=== PATIENT | female | born 1980 | race Caucasian/White ===

== ENCOUNTER 2019-11-05 13:58 | Outpatient (CLI) | payer OTHER, SELFPAY ==
--- NOTE | 2019-11-05 14:39 | ECG_ITS ---
Measurements Intervals [place] Rate: 71 P: 35 CA: 183 QRS: 36 QRSD: 92 T: 5 QT: 393 QTc: 430 Interpretive Statements SINUS RHYTHM DELAYED PRECORDIAL R/S TRANSITION MINIMAL Q WAVES- INFERIOR LEADS NONSPECIFIC T-WAVE ABNORMALITY- ANT/INF LEADS BORDERLINE ECG Electronically Signed On 11-05-2019 14:54:44 VITICULTURE TEACHER by Hamlet Rubi D.O.
[2019-11-05 15:32] LABS: Basophils Percent Auto 0.4 % (0.2-1.2); Eosinophils Absolute Auto 0.1 K/mm3 (0-0.3); Eosinophils Percent Auto 1.9 % (0-4.4); Hematocrit 39.8 % (37.0-47.0); Hemoglobin 12.1 g/dL (12.0-15.0); Immature Granulocyte Absolute 0.02 K/mm3 (0.00-0.031); Immature Granulocyte Percent A 0.3 % (0-0.5); Lymphocytes Absolute Auto 1.85 K/mm3 (0.9-3.2); Lymphocytes Percent Auto 27.7 % (18.3-44.2); Mean Corpuscular HGB Conc 30.4 g/dl (32-36); Mean Corpuscular Hemoglobin 24.8 pg (26-34); Mean Corpuscular Volume 81.6 fl (80-100); Mean Platelet Volume 10.4 fl (7.4-10.4); Monocytes Absolute Auto 0.5 K/mm3 (0.1-0.6); Monocytes Percent Auto 6.9 % (2.6-8.5); Neutrophils Absolute Auto 4.2 K/mm3 (1.3-6.7); Neutrophils Percent Auto 62.8 % (45.5-73.1); Platelet Count Result 339 k/mm3 (150-375); Red Blood Count 4.88 M/mm3 (4.2-5.4); Red Cell Distribution Width 13.9 % (11.5-14.5); White Blood Count 6.7 K/mm3 (4.5-10.0)
[2019-11-05 15:42] LABS: INR 0.9; Partial Thromboplastin Time 25.2 SECONDS (22.3-36.8); Prothrombin Time 12.1 Seconds (11.1-14.7)
[2019-11-05 15:45] LABS: Alanine Aminotransferase 26 U/L (4-35); Albumin Level 4.6 g/dL (3.5-5.1); Alkaline Phosphatase 78 U/L (38-126); Aspartate Amino Transferase 22 U/L (14-36); Bilirubin,Total 0.2 mg/dL (0.2-1.3); Blood Urea Nitrogen 12 mg/dL (7-17); Calcium 9.2 mg/dL (8.4-10.2); Carbon Dioxide 28 mmol/L (22-30); Chloride 98 mmol/L (98-107); Estimated Glomerular Filt Rate > 60; Glucose 148 mg/dL (65-105); Potassium 3.5 mmol/L (3.4-5.0); Sodium 139 mmol/L (137-145)
== END 2019-11-05 13:59 | disposition home or self-care (01) ==
LOC: ANHSURGERY 14:03
PROVIDERS: Visit Provider Urology
DX: Z01.818 Encounter for other preprocedural examination (principal); N39.3 Stress incontinence (female) (male); N81.4 Uterovaginal prolapse, unspecified; E11.9 Type 2 diabetes mellitus without complications; R94.31 Abnormal electrocardiogram [ECG] [EKG]
CPT/HCPCS: 36415; 80053; 85025; 85610; 85730; 86850; 86900; 86901; 87086; 93005

== ENCOUNTER 2019-11-12 00:39 | Day surgery (SDC) | payer OTHER, SELFPAY ==
[2019-11-05 14:40] VITALS: BP 148/84; PULSE 85; RESP 16; TEMP 36.6; O2SAT 100; BMI 35.2
--- NOTE | 2019-11-07 08:13 | PM.IMHP ---
H&P: HPI History of Present Illness Chief complaint: Stress Incontinence/ Uterine Prolapse Narrative: Catherine Jay is a 39 year old female who is admitted for robotic supracervical hysterectomy and bilateral salpingectomy. She has uterine prolapse has bulging discomfort. She will undergo sacral colpopexy with as well. Risks and benefits reviewed including but not exclusive of , aspiration pneumonia, bleeding, transfusion, perforation injury to bowel, bladder, ureters, or other internal organs with need for open repair risk of DVT and Fedder were also reviewed. 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 Surgical History Surgical History No history of previous surgery Social History Social History Smoking status: Never smoker Alcohol intake: never Gender identity (if verbalized by the patient): Female Meds Home Medications and Allergies Home Medications Medication Instructions Recorded Confirmed Type kc-py-SJ-vit D-gmkva-txs-coQ10 1 cap PO DAILY 07/18/19 11/05/19 History [Daily Multivitamin] omeprazole 40 mg PO DAILY 07/18/19 11/05/19 History levothyroxine 150 mcg PO DAILY 11/05/19 11/05/19 History Allergies Allergy/AdvReac Type Severity Reaction Status Date / Time Penicillins Allergy Unknown Hives Verified 11/05/19 14:38 Exam Const: General: no acute distress Eyes: General: appearance normal, both eyes and all related structures Neck: Neck: supple and no JVD Thyroid: thyroid normal Resp: Effort & Inspection: normal respiratory effort Auscultation: clear to auscultation bilaterally Cardio: Rate: regular rate Rhythm: regular rhythm GI: Inspection: non-distended GI Palp: Yes Soft to palpation, No Tenderness to palpation present (GI) and No Guarding due to palpation present (GI) Auscultation: normal bowel sounds : General: Yes bimanual renal exam normal bilaterally ( second-degree prolapse is seen) Skin: General skin exam: no rashes or lesions noted Extrem: General: normal to inspection and no edema Psych: Mental Status: mental status grossly normal Affect: normal affect Assessment and Plan Additional Plan impression: Pelvic prolapse Plan: Robotic supracervical hysterectomy and bilateral salpingectomy
[2019-11-12] VITALS (15 sets, daily range): BP systolic 108–148; BP diastolic 63–90; PULSE 63–88; RESP 12–20; TEMP 36.2–37.4; O2SAT 96–100
[2019-11-12] MEDS: LACTATED RINGERS 1,000 ML 30 ML IV CONT ×2 (06:45→11:18)
[2019-11-12 06:48] LABS: Glucose Point of Care 161 (65-105)
[2019-11-12] MEDS: FAMOTIDINE 20 MG/2 ML VIAL IV PUSH (06:50)
[2019-11-12] MEDS: SCOPOLAMINE 1.5 MG PATCH TRANSDERM (06:50)
--- NOTE | 2019-11-12 06:52 | WPDHPUPDATE1 ---
History and Physical Update Update Date/Time: 11/12/19 06:52 History and Physical has been reviewed, including an updated exam of the patient. There are NO changes in the patient's condition. Risks, benefits, and alternatives have been discussed and questions answered. Patient agrees to proceed with procedure.
--- NOTE | 2019-11-12 06:58 | WPDANESEPPF ---
Anes - Initial Pre Proc Eval Procedure: Operation Date: 11/12/19 07:30 Proposed Procedures p Robotic Sacrocolpopexy, Urethral Sling - Micah Leyva MD s Robotic Assisted Supracervical Hysterectomy with Bilateral Salpingectomy - Samm Mckeon MD Date/Time: 11/12/19 06:58 Surgeon: Micah Leyva MD Pre Op Diagnosis: Stress Incontinence/ Uterine Prolapse Patient Data Age: 39 Gender: F Height: 1.71 m Weight: 103.6 kg Last Vital Signs Temp 36.6 C 11/05/19 14:40 Pulse 85 11/05/19 14:40 Resp 16 11/05/19 14:40 BP 148/84 H 11/05/19 14:40 Pulse Ox 100 11/05/19 14:40 Allergies Allergy/AdvReac Type Severity Reaction Status Date / Time Penicillins Allergy Unknown Hives Verified 11/05/19 14:38 Home Medications Medication Instructions Recorded Confirmed Type ol-dz-AH-vit Q-xoftd-jor-coQ10 1 cap PO DAILY 07/18/19 11/05/19 History [Daily Multivitamin] omeprazole 40 mg PO DAILY 07/18/19 11/05/19 History levothyroxine 150 mcg PO DAILY 11/05/19 11/05/19 History Laboratory Tests 11/12/19 06:45 POC Capillary Glucose 161 mg/dl H mg/dl (65-105) Patient hx anesthesia problems: post op nausea/vomiting Family hx anesthesia problems: none PMFSH Past Medical History Medical History (Updated 11/12/19 @ 06:33 by Ángel Amos DO) Asthma Diabetes type 2, controlled Fibromyalgia GERD (gastroesophageal reflux disease) 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 Surgical History Surgical History (Updated 11/12/19 @ 06:33 by Ángel Amos DO) History of appendectomy History of Social History Social History Smoking status: Never smoker Alcohol intake: never Gender identity (if verbalized by the patient): Female Anes - Eval Final PreProcedure Day of Procedure 11/12/19 06:58 Patient weight: obese Heart: regular rate and rhythm Lungs: clear to auscultation and normal air movement Airway: Mallampati scale class II Neurological: alert and oriented Last oral intake: >/= 8 hours ASA classification: III Emergent: no Anesthetic plan: proceed Anesthesia type and monitoring: general ETT and standard monitoring Informed Consent: The patient's anesthetic plan and its attendant risks and benefits were discussed with the patient/family/POA. Questions were solicited and answers provided to the satisfaction of the patient/family/POA.
--- NOTE | 2019-11-12 07:27 | WPDHPUPDATE1 ---
History and Physical Update Update Date/Time: 11/12/19 07:27 History and Physical has been reviewed, including an updated exam of the patient. There are NO changes in the patient's condition. Risks, benefits, and alternatives have been discussed and questions answered. Patient agrees to proceed with procedure. Will also perform sling for ALEC
[2019-11-12] MEDS: metroNIDAZOLE 500 MG/ISO 100ML 500 MG/100 ML BAG 100 MG IVPB ×3 (07:34→23:05)
[2019-11-12] MEDS: levoFLOXacin 500 MG/D5W 100 ML 500 MG/100 ML BAG 100 MG IVPB (07:46)
[2019-11-12] MEDS: BUPIVACAINE/EPINEPHRINE 0.25% 50 ML VIAL 20 ML INFILTRATE (08:26)
--- NOTE | 2019-11-12 08:59 | PM.PROC ---
Procedure Note - Detailed Date of procedure: 11/12/19 Pre-op diagnosis: Stress Incontinence/ Uterine Prolapse Surgeon: Samm Mckeon MD Postop diagnosis: Stress incontinence/uterine prolapse/enlarged uterus Anesthesia: General endotracheal anesthesia next EBL: 25cc Complications: None Procedure robot supracervical hysterectomy and bilateral salpingectomy Findings: Normal-appearing ovaries and tubes. Enlarged uterus. Uterine prolapse Description of procedure: Patient was prepped and draped in the normal sterile fashion placed in dorsal lithotomy position. Under excellent general endotracheal anesthesia weighted speculum placed post formed vagina. Anterior lip of the cervix grasped with a single-tooth tenaculum. A Schaefer's cannula was inserted the cervix to be attached to the uterine manipulator. A 16 Serbian catheter was then placed. The remainder the instruments removed. Dr. Leyva proceeded to place the trocars undocked the robot. Please see his operative report for full details. Once this was undertaken attended the certified genetic counselor. The left round ligament was grasped, burned, cut anteriorly a bladder flap was formed by sharply dissecting the bladder caudally from the uterus and cervix this was incision was then brought to the opposite round ligament which was clamped, burned, cut. Next the left fallopian tube was removed by sharply dissecting with cautery away from the ovary complex. This was repeated on the contralateral side to remove the right tube the left utero-ovarian ligament was skeletonized serially clamped, burned, cut and brought to the level of the previously cut round ligament. In like fashion conserving the right ovary the the right utero-ovarian ligament was clamped, burned, cut and brought the level of previously cut round ligament. The left cardinal and broad ligaments ligaments were serially skeletonized clamped, burned, cut and brought down the lateral edge of the cervix until the uterine vessels could be seen. These were noted to be large and irregular. There were serially clamped, burned, cut. In like fashion the cardinal and broad ligaments on the left right were serially skeletonized, clamped, burned, cut and brought down to the level uterine vessels these were individually skeletonized clamped, burned, cut. Blanching of the uterus seen a supra a cervical incision was made. The uterus was cut into 4 pieces. Blood loss to that point was 25cc. All sponge, needle, instrument counts were correct. Dr. Leyva took over from there we did undertake robotic sacral colpopexy and repair of the vagina.
[2019-11-12] MEDS: KETOROLAC 30 MG/ML VIAL (*BKC) IV PUSH ×3 (10:41→23:09)
--- NOTE | 2019-11-12 10:55 | PM.OP ---
Procedure Note - Brief Procedure Note - Brief Date of procedure: 11/12/19 Pre-op diagnosis: Stress Incontinence/ Uterine Prolapse Post-op diagnosis: same Procedure performed: Robotic sacral colpopexy, mid urethral sling. Description of procedure: See dictated Anesthesia: GLMA Surgeon: Micah Leyva MD Estimated blood loss (mL): 30 Drains: No Packing: No Pathology: yes Complications: No immediate complications Condition: stable Disposition: PACU
--- NOTE | 2019-11-12 10:56 | PM.PROC ---
Procedure Note - Detailed Date of procedure: 11/12/19 Pre-op diagnosis: Stress Incontinence/ Uterine Prolapse Uterine prolapse Stress urinary incontinence Post-op diagnosis: same Procedure performed: Robotic assisted laparoscopic sacral colpopexy Mid urethral sling Cystoscopy Description of procedure: She understood the risks of bleeding, infection, damage to surrounding organs, bowel injury, bowel obstruction, recurrence of prolapse, persistent or recurrent stress incontinence, mesh related complications including exposure and extrusion, diskitis, postoperative voiding dysfunction including incontinence and retention, hip and leg pain, dyspareunia, and she agrees to proceed. She was correctly identified and informed consent was obtained. She was brought to the operating room. She was given general anesthesia. She was placed in the dorsal lithotomy position. All pressure points were padded. She was given appropriate perioperative antibiotics. Time-out performed. I anesthetized the skin 3 fingerbreadths cephalad to the umbilicus. I incised the skin. I dissected down to locate the fascia. I grasped the fascia with Ruthy clamps. I entered the fascia sharply. I placed Vicryl sutures for later fascial closure. I placed a midline trocar. Under direct vision 2 additional trocars were placed on the right and left upper quadrant. She was placed in steep Trendelenburg and the robot was docked. Her training facilitator performed the portion of the procedure and left the specimen and a sac which was extracted. Before doing this the specimen was sectioned into 5 pieces. These were confirmed of all to be out of the patient at the end of the procedure. I then sat at the console. With the Sizer in the vagina I created a plane on the anterior and posterior vaginal wall. This was done for several cm taking great care not to injure the vagina, bladder, or rectum. I introduced the mesh into the abdomen. I sewed the anterior leaflet of mesh on the anterior vaginal wall and posterior leaf of the mesh on the posterior vaginal wall with several [place]-Qasim sutures taking great care not to go through and through. I then reflected the colon laterally. I opened up the posterior peritoneum over the sacral promontory. I carried this into the cul-de-sac. I kept the ureters lateral. I freed up the edges. I located the anterior longitudinal ligament of the sacrum. I tensioned the mesh appropriately. I did a vaginal exam to ensure prolapse reduction without undue tension. I then sewed the proximal leaflet of mesh onto the ligament with 3 sutures of 2 0 [place]-Qasim. Next the mass was meticulously retroperitonealized with a running 2 0 Monocryl suture. I allowed the colon to go back into its normal anatomic location. There is no signs of any impingement or stricturing. The abdomen was exited. Fascia was closed. Skin was closed with Monocryl and glue. She was repositioned and prepped for perineal surgery. She was re-prepped. I turned my attention towards the urethral sling. I marked out the thigh incisions. I anesthetize the skin and made those incisions. I anesthetized the anterior vaginal wall over the mid urethra. I made a 1 cm incision. I dissected out laterally taking great care not to injure the urethra or the vaginal wall. I next passed the helical trocars to 1st on the left and then on the right. This was done from the thigh incision towards the vaginal incision. The sling was connected to the trocars and brought out through the thigh incision. I tensioned the sling appropriately. I cut and removed the plastic sheaths. I then closed the incision with 2 0 Vicryl. I then performed cystoscopy. The bladder is examined. There was no tumors, stones, foreign bodies, surgical artifact. Both ureters were seen to excrete clear yellow urine. There is no surgical artifact in the urethra. Catheter was then replaced. She was awakened and transferred to the PACU in stable condition
[2019-11-12 11:38] LABS: Glucose Point of Care 193 (65-105)
[2019-11-12] MEDS: ONDANSETRON INJ 4 MG/2 ML VIAL IV PUSH (14:53)
[2019-11-12] MEDS: KCL 20 MEQ/D5/0.45% SOD CHL 1,000 ML 100 ML IV CONT (14:54)
[2019-11-12] MEDS: PANTOPRAZOLE 40 MG TABLET PO (21:05)
[2019-11-13 01:17] VITALS: BP 122/78; PULSE 81; RESP 17; TEMP 36.9
[2019-11-13 05:20] VITALS: BP 135/74; PULSE 78; RESP 17; TEMP 36.7
[2019-11-13 05:41] LABS: Hematocrit 32.9 % (37.0-47.0); Hemoglobin 10.2 g/dL (12.0-15.0)
[2019-11-13 05:48] LABS: Blood Urea Nitrogen 8 mg/dL (7-17); Calcium 8.3 mg/dL (8.4-10.2); Carbon Dioxide 23 mmol/L (22-30); Chloride 107 mmol/L (98-107); Estimated CRCL calculation 113 ml/min; Estimated Glomerular Filt Rate > 60; Glucose 161 mg/dL (65-105); Potassium 3.6 mmol/L (3.4-5.0); Sodium 137 mmol/L (137-145)
--- NOTE | 2019-11-13 06:47 | PM.OBPNVD ---
OB - PN: Subj Subjective Date/time seen: 11/13/19 06:47 Patient comments: no complaints and pain well controlled OB - PN: Obj Data Labs CBC & Chem 7: 11/13/19 05:27 11/13/19 05:27 Labs: Laboratory Results - last 24 hr 11/12/19 11/12/19 11/13/19 06:45 11:36 05:27 Hgb 10.2 L Hct 32.9 L Sodium Potassium Chloride Carbon Dioxide BUN Creatinine Estim Creat Clear Calc Estimated GFR Glucose POC Capillary Glucose 161 H 193 H Calcium 11/13/19 05:27 Hgb Hct Sodium 137 Potassium 3.6 Chloride 107 Carbon Dioxide 23 BUN 8 Creatinine 0.70 Estim Creat Clear Calc 113 Estimated GFR > 60 Glucose 161 H POC Capillary Glucose Calcium 8.3 L OB - PN A/P Plan day: 1 Comments: nl postop check Time Spent With Patient Time: Total time spent is greater than 50% in coordination of care (as documented) at patient's floor/unit and/or counseling patient: Time with patient: less than 15 minutes Review of Systems Review of Systems: All systems reviewed & are unremarkable except as noted in HPI and below Exam Const: General: no acute distress Eyes: General: appearance normal, both eyes and all related structures Neck: Neck: supple and no JVD Thyroid: thyroid normal Resp: Effort & Inspection: normal respiratory effort Auscultation: clear to auscultation bilaterally Cardio: Rate: regular rate Rhythm: regular rhythm GI: Inspection: normal to inspection and incision (cdi) Percussion: Yes normal to percussion Auscultation: normal bowel sounds : General: Yes bladder normal to palpation External Female Exam: normal external appearance Speculum Exam - Vagina: normal vaginal discharge and No vaginal bleeding Speculum Exam - Cervix: nontender Bimanual exam- vagina & uterus: bladder normal to palpation and No Cervical tenderness present OB/external & speculum: No vaginal bleeding Skin: General skin exam: no rashes or lesions noted Extrem: General: normal to inspection and no edema Psych: Mental Status: mental status grossly normal Affect: normal affect
--- NOTE | 2019-11-13 06:48 | P.DS_ITS ---
DS: Diagnosis Admitting Diagnosis Admitting Diagnosis: Uterovaginal prolapse, unspecified DS: Summary Time Spent with Patient Time attestation: Total time spent providing and/or coordinating discharge services: Exam Const: General: no acute distress Eyes: General: appearance normal, both eyes and all related structures Neck: Neck: supple and no JVD Thyroid: thyroid normal Resp: Effort & Inspection: normal respiratory effort Auscultation: clear to auscultation bilaterally Cardio: Rate: regular rate Rhythm: regular rhythm GI: Inspection: non-distended GI Palp: Yes Soft to palpation, No Tenderness to palpation present (GI) and No Guarding due to palpation present (GI) Auscultation: normal bowel sounds : General: Yes bladder normal to palpation External Female Exam: normal external appearance Speculum Exam - Vagina: normal vaginal discharge and No vaginal bleeding Speculum Exam - Cervix: nontender Bimanual exam- vagina & uterus: bladder normal to palpation and No Cervical tenderness present OB/external & speculum: No vaginal bleeding Skin: General skin exam: no rashes or lesions noted Extrem: General: normal to inspection and no edema Psych: Mental Status: mental status grossly normal Affect: normal affect DS: Data Data Completed and Pending Pending studies at discharge: Pending at discharge 11/12/19 08:27 Surgical [PTH] Routine Labs on day of discharge: Labs from last 24 hours 11/13/19 11/13/19 11/12/19 05:27 05:27 11:36 Hgb 10.2 L Hct 32.9 L Sodium 137 Potassium 3.6 Chloride 107 Carbon Dioxide 23 BUN 8 Creatinine 0.70 Estim Creat Clear Calc 113 Estimated GFR > 60 Glucose 161 H POC Capillary Glucose 193 H Calcium 8.3 L 11/12/19 06:45 Hgb Hct Sodium Potassium Chloride Carbon Dioxide BUN Creatinine Estim Creat Clear Calc Estimated GFR Glucose POC Capillary Glucose 161 H Calcium Discharge Plan Discharge Patient Disposition: Home, Self-Care Discharge Instructions: Remove the Scopolamine patch that was placed behind your ear in 72 hours or less . Wash your hands after touching. No lifting >20lb, exercise for 6 weeks No tub bath or pool for 2 weeks Follow-up/Referrals: Micah Leyva MD [Physician] - (In 1 week and in 6 weeks) Discharge Medications: New tramadol 50 mg tablet 50 mg PO Q6H PRN (Reason: pain) Qty: 20 RF: 0 docusate sodium [Colace] 100 mg capsule 100 mg PO BID Qty: 60 RF: 0 Continued omeprazole 40 mg Capsule,Delayed Release(Dr/Ec) 40 mg PO DAILY RF: 0 Daily Multivitamin 200-100-500 mcg Capsule 1 cap PO DAILY RF: 0 levothyroxine 150 mcg Tablet 150 mcg PO DAILY RF: 0
[2019-11-13 07:40] VITALS: BP 128/73; PULSE 76; RESP 18; TEMP 37.3; O2SAT 100
[2019-11-13] MEDS: LEVOTHYROXINE SODIUM 150 MCG TABLET PO (07:40)
[2019-11-13] MEDS: HYOSCYAMINE SULFATE 0.125 MG TABLET SUBLINGUAL (07:43)
--- NOTE | 2019-11-13 07:44 | WPDANESPN ---
Anes - Prog Note Post-Op Date/Time: 11/13/19 07:44 Cardiovascular status: normal Respiratory status: normal Airway patency: baseline Mental status: baseline Post-Op hydration status: normal Vital Signs: Last Vital Signs Temp 36.7 C 11/13/19 05:20 Pulse 78 11/13/19 05:20 Resp 17 11/13/19 05:20 BP 135/74 11/13/19 05:20 Pulse Ox 99 11/12/19 17:01 I/O: Intake & Output 11/12/19 11/12/19 11/13/19 15:59 23:59 07:59 Intake Total 550 100 900 Output Total 425 1950 Balance 125 100 -1050 Laboratory Tests 11/13/19 05:27 11/13/19 05:27 11/12/19 11/13/19 11/13/19 11:36 05:27 05:27 Hgb 10.2 L Hct 32.9 L Sodium 137 Potassium 3.6 Chloride 107 Carbon Dioxide 23 BUN 8 Creatinine 0.70 Estim Creat Clear Calc 113 Estimated GFR > 60 Glucose 161 H POC Capillary Glucose 193 H Calcium 8.3 L Post-procedural complaints: none Patient Feedback: Patient satisfied with anesthetic care.
[2019-11-13] MEDS: PANTOPRAZOLE 40 MG TABLET PO (08:05)
[2019-11-13] MEDS: ENOXAPARIN 30 MG/0.3 ML SYRINGE SUB-Q (08:07)
[2019-11-13] MEDS: IBUPROFEN 600 MG TABLET PO (10:27)
[2019-11-13] MEDS: metroNIDAZOLE 250 MG TABLET 500 MG PO (13:18)
--- NOTE | 2019-11-13 14:06 | OBPPTRN ---
Patient transferred to post room #279 via W/C. Support person present. Oriented to unit, room, information board, rooming in, admission packet and security measures. Patient verbalizes understanding.
--- NOTE | 2019-11-13 18:01 | PC.NURSE ---
Pt vomited up her Flagyl pills @ 1310
== END 2019-11-13 14:50 | disposition home or self-care (01) ==
LOC: ANHSURGERY 07:13 → ANHOB2 12:29
PROVIDERS: Referring Provider Obstetrics & Gynecology; Visit Provider Urology
PROC: (CPT 57425; principal; 2019-11-12 07:30)
PROC: 0UT94ZZ Resection of Uterus, Percutaneous Endoscopic Approach (ICD-10-PCS; CPT 57425; 2019-11-12 07:30)
DX: N81.4 Uterovaginal prolapse, unspecified (principal); N39.3 Stress incontinence (female) (male); N80.0 Endometriosis of uterus; N83.8 Other noninflammatory disorders of ovary, fallopian tube and broad ligament; J45.909 Unspecified asthma, uncomplicated; E11.9 Type 2 diabetes mellitus without complications; K21.9 Gastro-esophageal reflux disease without esophagitis; M79.7 Fibromyalgia; E06.3 Autoimmune thyroiditis; E66.9 Obesity, unspecified; Z68.34 Body mass index [BMI] 34.0-34.9, adult
CPT/HCPCS: 57425; 57288; 58542; S2900 ×2; 36415; 80048; 80053; 85014; 85018; 85025; 85610; 85730; 86850; 86900; 86901; 87086; 88307; 93005; 99199; A9270; C1771; C1781; J0131; J1170; J1200; J1650; J1885; J1956; J2250; J2405; J2704; J2710; J3010; J3480; J7030; J7120